=== PATIENT | male | born 1945 | race Caucasian/White ===

== ENCOUNTER 2019-05-19 15:17 | Emergency (ER) | payer SELFPAY ==
[~2019-05-19] VITALS: Ht 147.3 cm; Wt 55.1 kg
[2019-05-19 15:33] VITALS: Ht 147.3 cm; Wt 55.1 kg
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
[2019-05-19] MEDS ORDERED: ACET-141 PO (19:26)
[2019-05-19 19:57] VITALS: BP 144/64; PULSE 63; RESP 16
== END 2019-05-19 19:58 | disposition home or self-care (01) ==
LOC: FTE 15:17
DX: S00.33XA Contusion of nose, initial encounter (principal); S00.83XA Contusion of other part of head, initial encounter; Y04.2XXA Assault by strike against or bumped into by another person, initial encounter
CPT/HCPCS: 70450; 70486; 72125